=== PATIENT | female | born 1970 | race African-American/Black ===

== ENCOUNTER 2017-07-02 15:06 | Observation (INO) | payer OTHER ==
--- OUTSIDE RECORDS SUMMARY | 2017-07-02 15:08 | XMS REPORT | Clinical Summary ---
:1970 Author Organization [facility] Address [address] [place] [address] Care Team Providers Name Role Phone Kezia Bailon MD Primary Care Provider Allergies Active Allergy Reactions Severity Noted Date Comments Penicillin Swelling 04/17/2017 Current Medications Prescription Sig. Disp. Refills Start Date End Date Status gabapentin (NEURONTIN) Take 100 mg by Active 100 mg capsule mouth 3 (three) times a day. ferrous sulfate 324 mg Take 65 mg by mouth Active (65 mg iron) daily with tablet,delayed release breakfast. (DR/EC) EC tablet clopidogrel (PLAVIX) 75 Take 75 mg by mouth Active mg tablet daily. B,C/FERROUS Take 1 capsule by Active FUM/FA/D3/ZINC OX mouth daily. (PRORENAL ORAL) aspirin (ECOTRIN) 81 MG Take 81 mg by mouth Active enteric coated tablet daily. amLODIPine (NORVASC) 10 Take 10 mg by mouth Active mg tablet daily. hydrALAZINE (APRESOLINE) Take 50 mg by mouth Active 50 MG tablet 3 (three) times a day. potassium chloride Take 10 mEq by Active (KLOR-CON) 10 MEQ CR mouth daily. tablet pravastatin (PRAVACHOL) Take 20 mg by mouth Active 20 MG tablet nightly. lisinopril Take 40 mg by mouth Active (PRINIVIL,ZESTRIL) 40 mg daily. tablet sevelamer (RENVELA) 800 Take 800 mg by Active mg tablet mouth 3 (three) times a day with meals. 1 tab with snack. Active Problems Problem Noted Date Type 2 diabetes mellitus with renal complication 04/17/2017 Encounters Date Type Specialty Care Team Description 06/04/2017 Hospital Encounter Transplant Asked, No Pcp No Show 06/04/2017 Hospital Encounter Transplant Asked, No Pcp No Show 05/13/2017 Documentation Transplant Angely Escobedo TXP- MCR ABD- RENAL TXP EVAL APPVL 04/20/2017 Telephone Transplant Isabel Walker, NEW PATIENT PACKET MA 04/17/2017 Telephone Transplant Isidra RodriguezMICAH Referral - Kidney Txp (New MD Keegan coe) after 07/01/2016 Social History Tobacco Use Types Packs/Day Years Used Date Former Smoker Cigarettes 0.5 20 Quit: 04/06/2014 Smokeless Tobacco: Never Used Sex Assigned at Date Recorded Not on file Last Filed Vital Signs Vital Sign Reading Time Taken Blood Pressure - - Pulse - - Temperature - - Respiratory Rate - - Oxygen Saturation - - Inhaled Oxygen Concentration - - Weight 113 kg (250 lb) 04/17/2017 3:43 PM 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 [phone] [address] [facility] Self 1970 Home: [address] [phone] [address]
--- NOTE | 2017-07-02 16:26 | EKG ---
Test Date: 2017-07-02 Test Time: 15:47:07 Wire Taper: GERDA MEASUREMENT RESULTS: Intervals: Rate: 96 NE: 150 QRSD: 86 QT: 352 QTc: 444 [place]: P: 29 NE: 150 QRS: 21 T: 58 INTERPRETIVE STATEMENTS: Normal sinus rhythm Possible Anterior infarct, age undetermined Abnormal ECG No previous ECG available for comparison Electronically Signed On 07-02-17 16:26:23 CDT by Tacos Langley
[2017-07-02 17:05] LABS: Absolute Monocytes 0.9 K/uL (0.1-1.3); Absolute Neutrophil 7.7 K/uL (1.8-8.0); Eosinophils % 4.8 % (0-4.4); Lymphocytes % 24.3 % (15.3-44.8); MCH 31.8 pg (27.0-35.0); MCV 93.6 fL (80-100); MPV 7.7 fL (7.6-11.3); Monocytes % 7.7 % (3.3-12.3); RBC Red Blood Cell Count 2.67 M/uL (3.86-4.86)
[2017-07-02 17:41] LABS: Potassium 5.7 mEq/L (3.6-5.0)
--- NOTE | 2017-07-02 18:02 | ER ---
Nurse's Notes [facility] Name: Lexus Green Age: 47 yrs Sex: Female : 1970 Arrival Date: 07/02/2017 Time: 15:07 Bed 16 Private MD: Honorio Lowe V Diagnosis: Hyperkalemia;Dyspnea Presentation: 07/02 15:19 Presenting complaint: Patient states: Sent by Dr Lowe for high potassium. Patient does aj peritoneal dialysis daily. Transition of care: patient was not received from another setting of care. Onset of symptoms was July 02, 2017. Care prior to arrival: None. 15:19 Method Of Arrival: Ambulatory aj 15:19 Acuity: SHERI 3 aj Triage Assessment: 15:22 General: Appears in no apparent distress. comfortable, Behavior is calm, cooperative, aj appropriate for age. Pain: Complains of pain in right lower back, right gluteus lita, right gluteal fold and right leg. Neuro: Level of Consciousness is awake, alert, obeys commands, Oriented to person, place, time, situation. Respiratory: Airway is patent Respiratory effort is even, unlabored, Respiratory pattern is regular, symmetrical. Derm: Skin is intact, is healthy with good turgor, Skin is pink, warm \\T\\ dry. normal. 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 - Social history:: Smoking status: Patient/guardian denies using tobacco. Screenin:27 Abuse screen: Denies threats or abuse. Nutritional screening: No deficits noted. rb1 Tuberculosis screening: No symptoms or risk factors identified. Fall Risk None identified. Assessment: 15:27 General: Appears in no apparent distress. comfortable, obese, Behavior is calm, rb1 cooperative, Reports Dr. shine called and told her to pack a bag and come to the ER due to abnormal lab results. Pt. wasn't sure why they told her to come here, other than high potassium. Neuro: Level of Consciousness is awake, alert, obeys commands, Oriented to person, place, time, situation. Cardiovascular: Capillary refill < 3 seconds is brisk in bilateral fingers. Respiratory: Airway is patent Respiratory effort is even, unlabored, Respiratory pattern is regular, symmetrical. GI: No signs and/or symptoms were reported involving the gastrointestinal system. : No signs and/or symptoms were reported regarding the genitourinary system. Derm: Skin is dry, Skin is normal, Skin temperature is warm. 15:40 Reassessment: Pt. didn't want to get an IV until the physician came in to talk with her.rb1 15:45 Reassessment: I informed the pt. that the provider would like to draw more labs to rb1 recheck the levels and the pt. agreed to an IV. 16:23 Reassessment: Patient appears in no apparent distress at this time. Patient and/or rb1 family updated on plan of care and expected duration. Pain level reassessed. Patient is alert, oriented x 3, equal unlabored respirations, skin warm/dry/pink. 17:41 Reassessment: Dr. Putnam notified of critical lab values, potassium 5.7 and creatinine ss 12.84. 18:18 Reassessment: Patient appears in no apparent distress at this time. Patient and/or rb1 family updated on plan of care and expected duration. Pain level reassessed. Patient is alert, oriented x 3, equal unlabored respirations, skin warm/dry/pink. 18:30 Reassessment: KATY Manzano stated, "I'm going to ask KATY Prado to put a midline in rb1 because the pt. is a hard stick.". 19:36 Reassessment: Patient appears in no apparent distress at this time. No changes from aj previously documented assessment. Patient and/or family updated on plan of care and expected duration. Pain level reassessed. Patient is alert, oriented x 3, equal unlabored respirations, skin warm/dry/pink. Vital Signs: 15:22 BP 144 / 65; Pulse 100; Resp 17; Temp 97.2; Pulse Ox 97% on R/A; Weight 124.74 kg; aj Height 5 ft. 8 in. (172.72 cm); Pain 8/10; 16:14 BP 149 / 74; Pulse 94; Resp 19; Pulse Ox 98% on R/A; rb1 18:14 BP 168 / 78; Pulse 96; Resp 17; Pulse Ox 100% on R/A; rb1 20:08 BP 143 / 78; Pulse 95; Resp 17; Pulse Ox 99% on R/A; aj 15:22 Body Mass Index 41.81 (124.74 kg, 172.72 cm) aj ED Course: 15:07 Patient arrived in ED. as 15:07 Honorio Lowe MD is Private Physician. as 15:20 Triage completed. aj 15:22 Arm band placed on right wrist. Patient placed in an exam room. aj 15:27 Patient has correct armband on for positive identification. Bed in low position. Call rb1 light in reach. Side rails up X 1. Pulse ox on. NIBP on. 15:29 Ankit Mccabe MD is Attending Physician. gs 15:31 Renetta Stiles, RN is Primary Nurse. rb1 15:45 Missed attempt(s): 22 gauge in left antecubital area. rb1 16:00 Missed attempt(s): 20 gauge in right antecubital area. Bleeding controlled, band aid dh3 applied, catheter tip intact. Missed attempt(s): 22 gauge in right hand. Bleeding controlled, band aid applied, catheter tip intact. Missed attempt(s): 22 gauge in left antecubital area. Bleeding controlled, band aid applied, catheter tip intact. 16:07 EKG done, by property technician. reviewed by Ankit Mccabe MD. at1 16:07 Missed attempt(s): 24 gauge in left forearm. Bleeding controlled, band aid applied, ss catheter tip intact. 16:47 CBC with Diff Sent. sg 16:47 Basic Metabolic Panel Sent. sg 18:00 Honorio Lowe MD is Hospitalizing Provider. gs 18:55 Report given to KULDIP Roberson. rb1 19:00 Applied triple antibiotic ointment, 4x4 gauze, and Coban on the 2nd toe of right foot. rb1 19:08 Primary Nurse role handed off by Renetta Stiles, RN aj 19:08 Karol Devi RN is Primary Nurse. aj 19:50 Repeat lab(s) drawn. by co, sent to lab. Inserted 18 gauge 10 cm midline to right upper mw brachial vein on second attempt. Line with good blood return and flushes well. 20:45 Patient admitted, IV remains in place. intact. aj Administered Medications: 18:09 Drug: Kayexalate 30 grams Route: PO; rb1 20:44 Follow up: Response: No adverse reaction aj 18:09 Drug: Lovenox 40 mg Route: Sub-Q; Site: left lower abdomen; rb1 20:44 Follow up: Response: No adverse reaction aj 20:08 Drug: Lasix 80 mg Route: IVP; Site: right antecubital; aj 20:44 Follow up: Response: No adverse reaction Outcome: 18:01 Decision to Hospitalize by Provider. 20:45 Admitted to Med/surg accompanied by tech, via wheelchair, room 215, Report called to zen Nguyen RN 20:45 Condition: good 20:45 Instructed on the need for admit. 20:45 Patient left the ED. zen Signatures: Judy Flood RN KULDIP Olvin Leavitt RN RN sg Myers, Amanda, RN RN aj Martinez, Amelia as Smirch, Shelby, RN RN ss Karol bronson, armoured [employer] officer EKG Tat1 Renetta Stiles RN RN [facility] Jazmine Coombs 3 Ankit Mccabe MD MD Corrections: (The following items were deleted from the chart) 18:19 16:23 Reassessment: Patient appears in no apparent distress at this time. No changes rb1 from previously documented assessment. rb1
--- NOTE | 2017-07-02 18:02 | EDPHYS ---
Physician Documentation [facility] Name: Lexus Green Age: 47 yrs Sex: Female : 1970 Arrival Date: 07/02/2017 Time: 15:07 Bed 16 Private MD: Honorio Lowe V ED Physician Salas Mccabeory HPI: 07/02 17:51 This 47 yrs old Black Female presents to ER via Ambulatory with complaints of Abnormal gs Lab Results. 17:51 The patient has shortness of breath during heavy activity. Onset: The symptoms/episode gs began/occurred 2 day(s) ago. Duration: The symptoms are intermittent. The patient's shortness of breath is aggravated by exertion. Associated signs and symptoms: Pertinent negatives: chest pain, hemoptysis. Severity of symptoms: At their worst the symptoms were moderate in the emergency department the symptoms have improved moderately. The patient has experienced similar episodes in the past, a few times. The patient has been recently seen by a physician: the patient's primary care provider, Dr. Lowe. 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 - Social history:: Smoking status: Patient/guardian denies using tobacco. ROS: 17:51 Respiratory: Negative for pleurisy. gs 17:51 All other systems are negative. Exam: 17:51 Head/Face: Normocephalic, atraumatic. Eyes: Pupils equal round and reactive to light, gs extra-ocular motions intact. Lids and lashes normal. Conjunctiva and sclera are non-icteric and not injected. Cornea within normal limits. Periorbital areas with no swelling, redness, or edema. ENT: Nares patent. No nasal discharge, no septal abnormalities noted. Tympanic membranes are normal and external auditory canals are clear. Oropharynx with no redness, swelling, or masses, exudates, or evidence of obstruction, uvula midline. Mucous membranes moist. Neck: Trachea midline, no thyromegaly or masses palpated, and no cervical lymphadenopathy. Supple, full range of motion without nuchal rigidity, or vertebral point tenderness. No Meningismus. Chest/axilla: Normal chest wall appearance and motion. Nontender with no deformity. No lesions are appreciated. Cardiovascular: Regular rate and rhythm with a normal S1 and S2. No gallops, murmurs, or rubs. Normal PMI, no JVD. No pulse deficits. Respiratory: Lungs have equal breath sounds bilaterally, clear to auscultation and percussion. No rales, rhonchi or wheezes noted. No increased work of breathing, no retractions or nasal flaring. Abdomen/GI: Soft, non-tender, with normal bowel sounds. No distension or tympany. No guarding or rebound. No evidence of tenderness throughout. Back: No spinal tenderness. No costovertebral tenderness. Full range of motion. Skin: Warm, dry with normal turgor. Normal color with no rashes, no lesions, and no evidence of cellulitis. Neuro: Awake and alert, GCS 15, oriented to person, place, time, and situation. Cranial nerves II-XII grossly intact. Motor strength 5/5 in all extremities. Sensory grossly intact. Cerebellar exam normal. Normal gait. 17:51 Constitutional: The patient appears alert, awake. 17:51 ECG was reviewed by the Attending Physician. 17:51 Musculoskeletal/extremity: Extremities: noted in the left second toe and Left second toenail: Vital Signs: 15:22 BP 144 / 65; Pulse 100; Resp 17; Temp 97.2; Pulse Ox 97% on R/A; Weight 124.74 kg; aj Height 5 ft. 8 in. (172.72 cm); Pain 8/10; 16:14 BP 149 / 74; Pulse 94; Resp 19; Pulse Ox 98% on R/A; rb1 18:14 BP 168 / 78; Pulse 96; Resp 17; Pulse Ox 100% on R/A; rb1 20:08 BP 143 / 78; Pulse 95; Resp 17; Pulse Ox 99% on R/A; aj 15:22 Body Mass Index 41.81 (124.74 kg, 172.72 cm) aj MDM: 16:22 Patient medically screened. 17:51 Differential diagnosis: CHF exacerbation, Chronic Obstructive Pulmonary Disease gs Myocardial Infarction pneumonia, possible pe dimer was positive but is a renal pt. no hard clinical findings of pe , no pleurisy, tachycardia, tachypnea, no hypoxemia. spoke with shani will get vq, cover with lovenox monitor K change pd formulation. Data reviewed: vital signs, nurses notes, and as a result, I will admit patient. 07/02 15:37 Order name: CBC with Diff; Complete Time: 17:29 gs 07/02 15:37 Order name: Basic Metabolic Panel; Complete Time: 17:48 07/02 18:09 Order name: Basic Metabolic Panel EDPR 07/02 18:09 Order name: Troponin I EDPR 07/02 18:09 Order name: Troponin I EDPR 07/02 18:09 Order name: Troponin I EDPR 07/02 15:37 Order name: EKG; Complete Time: 15:38 07/02 18:09 Order name: CONS Physician Consult EDPR 07/02 18:09 Order name: EKG Electrocardiogram EDPR 07/02 18:09 Order name: EKG Electrocardiogram EDPR EC:51 Rate is 96 beats/min. Rhythm is regular. OR interval is normal. QRS interval is normal. T waves are Flattened. Clinical impression: Abnormal EKG without significant change. Interpreted by me. Administered Medications: 18:09 Drug: Kayexalate 30 grams Route: PO; rb1 20:44 Follow up: Response: No adverse reaction aj 18:09 Drug: Lovenox 40 mg Route: Sub-Q; Site: left lower abdomen; rb1 20:44 Follow up: Response: No adverse reaction aj 20:08 Drug: Lasix 80 mg Route: IVP; Site: right antecubital; aj 20:44 Follow up: Response: No adverse reaction aj Disposition: 07/02/17 18:01 Hospitalization ordered by Honorio Lowe for Observation. Preliminary diagnosis are Hyperkalemia, Dyspnea. - Bed requested for Telemetry/MedSurg (observation). - Status is Observation. aj - Condition is Stable. - Problem is an acute exacerbation. - Symptoms have improved. UTI on Admission? No Signatures: Dispatcher [employer] [facility] Dorothea Somers RN RN dw Myers, Amanda, RN RN aj Barber, Rebecca, RN RN rb1 Ankit Mccabe MD MD
[2017-07-02] MEDS ORDERED: ENOXAPARIN 40 MG/0.4 ML SQ ONE (18:27)
[2017-07-02] MEDS ORDERED: SOD POLYSTYREN SUL 15 GM/60 ML UCUP ONE (18:27)
[2017-07-02 20:20] LABS: Potassium 5.9 mEq/L (3.6-5.0)
[2017-07-02] MEDS ORDERED: FUROSEMIDE 100 MG/10 ML VIAL IV ONE (20:23)
[2017-07-02] MEDS ORDERED: ALBUTEROL 2.5 MG/3 ML NEB SOL NEB ONE (20:37)
[2017-07-02] MEDS ORDERED: D50W 25 GM/50 ML SYRINGE IV PRN (20:38)
[2017-07-02] MEDS ORDERED: GLUCAGON 1 MG/VIAL IM PRN (20:38)
[2017-07-02] MEDS ORDERED: D50W 25 GM/50 ML SYRINGE IV ONE (20:38)
[2017-07-02] MEDS ORDERED: INSULIN -REGULAR HUMAN 50 UNIT/0.5 ML ML IV ONE (20:40)
[2017-07-02] MEDS: BUMETANIDE 1 MG/4 ML VIAL IV SCH (21:00)
[2017-07-02] MEDS ORDERED: Levofloxacin 250mg IV 250 MG/50 ML BAG IV SCH (21:00)
[2017-07-02 21:24] VITALS: BMI 41.9
[2017-07-02] MEDS ORDERED: VANCOMYCIN/NS 1 gm 2 GM/500 ML BAG IVPB ONE (22:00)
[2017-07-02] MEDS: DIPHENHYDRAMINE 25 MG TAB/CAP PO PRN (22:52)
[2017-07-02] MEDS: INSULIN -REGULAR HUMAN 50 UNIT/0.5 ML ML SQ SCH (22:55)
[2017-07-03] MEDS ORDERED: NA CHLORIDE 0.9% 250 ML ONE ×3 (00:42→21:01)
[2017-07-03 01:59] LABS: Urine Appearance CLOUDY; Urine Bilirubin NEGATIVE (NEG); Urine Blood NEGATIVE (NEG); Urine Color YELLOW; Urine Glucose NEGATIVE (NEG); Urine Protein 1+ (NEG); Urine Urobilinogen 0.2 mg/dL (0.2-1.0); Urine pH 5.5 (5.0-7.0)
[2017-07-03 02:05] LABS: Urine Microscopic Reflex ORDER UMIC
[2017-07-03] MEDS: ACETAMINOPHEN 500 MG TAB PO PRN ×2 (04:30→12:39)
[2017-07-03 04:45] LABS: Urine Bacteria LOADED /HPF (<20); Urine Culture Reflex Order REFLEXED; Urine RBC <5 /HPF (NONE SEEN)
--- NOTE | 2017-07-03 05:24 | CON ---
Date of Consultation: 07/02/2017 Additional Consulting Physician: Honorio Lowe M.D. Reason For Consultation: Hyperkalemia, hypertension, fluid overload, and end-stage renal disease. History Of Present Illness: This is a pleasant unfortunate 47-year-old female with significant past medical history of diabetes complicated with neuropathy, nephropathy, hypertension, hyperlipidemia, e nd-stage renal disease, on peritoneal dialysis, was started on peritoneal dialysis for the last 1 yea r, started in [place]. The patient move back to her home town. According to the patient, her co jovan was complicated with MT amputation on the left. The patient followup with [facility] for Amy ors under the care of Franky Rajan, Nephrology. According to the patient, the patient visited with them 2 weeks ago with the condition of over volume. Her lab showing some hyperkalemia and anemia. A t that time, she has some infected toe, given ciprofloxacin. The patient came to her primary care Dr Natalia Lowe, found to have shortness of breath and edema. For that reason, she sent to the emergency [facility]. In the emergency room, primary workup show hyperkalemia. The patient denied any shortness of tamela ath. No chest pain. No palpitation. We have been consulted to maintain her PDA because of the hyperkalemia. The patient denied any fever or any chills. No abdominal pain. Past Medical History: 1.Hypertension. 2.Diabetes complicated with neuropathy and nephropathy. 3.Peripheral vascular disease, status post TMA on the left side. Family History: Positive for diabetes and hypertension. Social History: Deny smoking. Deny drinking. Deny drug use. Allergies: TO PENICILLIN. Past Surgical History: 1.Include PermCath placement and removal. 2.PD catheter placement. Review of Systems: Head and Neck: No red eye. No ear pain. GI: No nausea, no vomiting. : No polyuria. No dysuria. No hematuria. 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 Respiratory: No shortness of breath. Cardiovascular: Has leg swelling. Endocrine: No polydipsia. Skin: No rash. Neuro: Has neuropathy. Musculoskeletal: Has toe pain. Physical Examination: Vital Signs: When I saw the patient, blood pressure of 168/78, pulse of 96, afebrile. Chest: Clear to auscultation. Heart: S1, S2. Regular rhythm. Abdomen: Soft, nontender. Extremities: +1 edema. Left TMA, right second toe gangrene. Laboratory Data: WBC 12.4, H and H 8.5/25, platelets 304. Sodium 138, potassium 5.7, bicarb 22, chl oride 100, BUN 103, creatinine 12.8, calcium 9.1. TSH 1.6. Home Medications: Do not remember her home medication. Assessment And Plan: 1.End-stage renal disease, over volume. I educated the patient to bring her machine and start ultra filtration using 4.25 and 2.5 alternating for establishing better volume control. I am going to plac e the patient on Bumex and metolazone and we will follow up. 2.Hyperkalemia. We will diurese the patient aggressively. We will start the patient on PD and we w ill follow up. 3.Anemia of chronic kidney disease with the presence of hyperkalemia. I am going to go ahead and se nd for fecal occult. We will send for anemia workup. 4.Diabetes as by primary. 5.Secondary hyperparathyroidism. We will start the patient on calcitriol. 6.Toe infection. I am going to go ahead and get foot x-ray and we will dose the patient of 1 dose o f vancomycin and start on Cipro. We will send for culture. We will consult for surgery. Case discu ssed with the patient, verbalized understanding, discussed with Dr. Lowe. MICAH/JENNIFER Voice ID: [id number] Report ID: [id number]
[2017-07-03 05:47] LABS: Absolute Lymphocytes (CBC) 2.1 K/uL (0.7-4.9); Absolute Monocytes 1.1 K/uL (0.1-1.3); Absolute Neutrophil 7.4 K/uL (1.8-8.0); Basophils % 0.9 % (0-1.3); Eosinophils % 2.8 % (0-4.4); Hematocrit 21.9 % (36.0-45.0); Lymphocytes % 19.5 % (15.3-44.8); MCV 95.3 fL (80-100); MPV 7.8 fL (7.6-11.3); Monocytes % 9.9 % (3.3-12.3)
[2017-07-03 06:32] LABS: Albumin 2.8 g/dL (3.2-5.5); Bicarbonate 21 mEq/L (21-31); Ferritin 336.3 ng/ml (11.0-306.8); Glucose Level 278 mg/dL (65-120); Phosphorus 8.1 mg/dL (2.5-4.3); Potassium 5.5 mEq/L (3.6-5.0); Sodium Level 134 mEq/L (135-145); Transferrin 126 mg/dL (192-382)
[2017-07-03 06:37] LABS: BUN Blood Urea Nitrogen 103 mg/dL (6-20); Glomerular Filtration Rate 4 mL/min (=/>90)
[2017-07-03 06:38] LABS: Folic Acid, (Folate) > 22.3 ng/ml (>5.21)
--- NOTE | 2017-07-03 07:32 | RAD REPORT ---
EXAM DESCRIPTION: RAD - Foot Right 3 View - 07/03/2017 7:03 am CLINICAL HISTORY: Soft tissue wound, possible osteomyelitis COMPARISON: None. FINDINGS: Soft tissue wound involves the distal second toe. Early erosive changes involve the second distal phalanx. Proximal and middle phalanges pain intact. Mild degenerative change seen in the IP joints of the foot. MTP joints are spared. There are degenera tive changes along the dorsum of the foot at the navicular articulation with the cuneiform bones. Thi s is favored to be degenerative change rather than midfoot osteomyelitis. Midfoot changes can be angelo tored on serial examination. If the patient is diabetic, this could be the initial stages of Charcot joint development. There are early degenerative changes at the cuneiform metatarsal articulation. IMPRESSION: Early bone destructive osteomyelitis changes involving the distal phalanx of the second toe. Proximal and middle phalanges of the second toe are intact although osteomyelitis can be present prio r to bone destruction. Degenerative changes at the dorsum of the midfoot navicular-cuneiform articulation. If the patient is diabetic, serial imaging could be performed to monitor midfoot for progressive degenerative change o r Charcot joint formation.
[2017-07-03] MEDS ORDERED: ALBUTEROL 2.5 MG/3 ML NEB SOL NEB ONE (07:40)
[2017-07-03] MEDS ORDERED: D50W 25 GM/50 ML SYRINGE IV ONE (07:41)
[2017-07-03] MEDS ORDERED: INSULIN -REGULAR HUMAN 50 UNIT/0.5 ML ML IV ONE ×2 (07:42→16:40)
[2017-07-03] MEDS ORDERED: FUROSEMIDE 40 MG/4 ML VIAL IV PRN (07:45)
[2017-07-03] MEDS: ASPIRIN EC 81 MG TAB PO SCH (08:12)
[2017-07-03] MEDS: METOLAZONE 5 MG TABLET PO SCH (08:12)
[2017-07-03] MEDS: INSULIN -REGULAR HUMAN 50 UNIT/0.5 ML ML SQ SCH ×4 (08:13→21:03)
[2017-07-03] MEDS: BUMETANIDE 1 MG/4 ML VIAL IV SCH ×2 (08:16→20:46)
[2017-07-03] MEDS: DIPHENHYDRAMINE 25 MG TAB/CAP PO PRN (12:39)
--- NOTE | 2017-07-03 13:01 | P.HP ---
Certification for Inpatient Patient admitted to: Inpatient With expected LOS: >2 Midnights Practitioner: I am a practitioner with admitting privileges, knowledge of patient current condition, hospital course, and medical plan of care. Services: Services provided to patient in accordance with Admission requirements found in Title 42 Section 412.3 of the Code of Federal Regulations Patient History Date of Service: 07/03/17 Reason for admission: DYSPNEA, HIGH K, EDEMA, ANEMIA History of Present Illness: I SAW MS. NAYLOR FIRST TIME YESTERDAY AT OFFICE. SHE CAME WITH MILD TO MOD DYSPNEA, EDEMA, FATIGUE. SHE IS A RENAL PATIENT ON PD, SHE MOVED FROM [place] REFERRED BY [employer] [facility] TO MY OFFICE. I FOUND HER TO BE IN MODERATE DISTERESS WITH PND, ORTHOPNEA SO I DECIDED TO DO LAB WORK. D DIMER WAS HIGH AT 1400, K WAS HIGH AT 5.7. I ASKED HER TO COME TO ER. SHE IS NOW ADMITTED FOR FURTHER TINAJERO. I ALSO TALKED TO DR. SILVERMAN AND ER DOCTOR BEFORE CALLING HER BACK. SHE DENIES ANY ACUTE BLEEDING. SHE HAS HAD 3 STENTS FOR CAD IN THE PAST. Allergies Penicillins Allergy (Verified 07/02/17 19:22) Hives Home Medications: Amlodipine [Norvasc*] 1 tab PO BEDTIME 07/03/17 Aspirin [Aspir-Low] 1 tab PO DAILY 07/03/17 B,C/Ferrous Fum/FA/D3/Zinc Ox [Prorenal Multivitamin Tablet] 1 tab PO DAILY Calcitrol [Rocaltrol*] 2 tab PO DAILY 07/03/17 Cephalexin [Keflex*] 1 tab PO BID 07/03/17 Cholecalciferol (Vitamin D3) [Vitamin D3] 1 tab PO DAILY 07/03/17 Clopidogrel Bisulfate [Plavix*] 1 tab PO DAILY 07/03/17 Gabapentin [Neurontin*] 3 tab PO DAILY 07/03/17 Hydralazine HCl [Apresoline] 1 tab PO TID 07/03/17 Insulin Aspart [Novolog] See Protocol SQ BEDTIME 07/03/17 Insulin Detemir [Levemir*] 10 units SQ BEDTIME 07/03/17 Insulin Detemir [Levemir*] 25 units SQ AC 07/03/17 Lisinopril 1 tab PO BEDTIME 07/03/17 Potassium Chloride 1 tab PO DAILY 07/03/17 Pravastatin Sodium [Pravachol] 1 tab PO BEDTIME 07/03/17 Sevelamer Carbonate [Renvela*] 1 tab PO TID 07/03/17 - Past Medical/Surgical History Has patient received pneumonia vaccine in the past: No Diabetic: Yes -: Diabetes Type 2 -: HTN -: Hyperlipidemia -: -: Liposuction -: butt-lift -: breast reduction -: 3 stents inserted from Stroke -: CHF -: Left foot partial amputation - Family History Mother -: Heart disease, Hypertension Father -: Stroke Sister -: Hypertension - Social History Smoking Status: Former smoker Alcohol use: Yes CD- Drugs: No Caffeine use: Yes Place of Residence: Home Review of Systems 10-point ROS is otherwise unremarkable General: Weakness, Malaise Eyes: As per HPI Cardiovascular: Orthopnea, Paroxysmal Noc. Dyspnea, Edema Physical Examination - Vital Signs Temperature: 97.7 F Blood Pressure: 117/55 Pulse: 100 Respirations: 16 Pulse Ox (%): 96 - Physical Exam General: Alert, Moderate distress, Obese HEENT: Atraumatic, PERRLA, Mucous membr. moist/pink, EOMI, Sclerae nonicteric Neck: Supple, 2+ carotid pulse no bruit, No LAD, Without JVD or thyroid abnormality Respiratory: Clear to auscultation bilaterally, Normal air movement Cardiovascular: Regular rate/rhythm, Normal S1 S2 Gastrointestinal: Normal bowel sounds, No tenderness Musculoskeletal: No tenderness Integumentary: No rashes, Other (L FOREFOOT AMPUTATION FOR PVD, SPIDER BITE. RIGHT SECOND TO BLUISH DISCOLORATION AND ULCER WITH CALLUS ON THE PLANTER SURFACE. NO PUS.) Neurological: Normal gait, Normal speech, Normal strength at 5/5 x4 extr, Normal tone, Normal affect Lymphatics: No axilla or inguinal lymphadenopathy - Studies Laboratory Data (last 24 hrs) 07/02/17 16:36: Sodium 135, Potassium 5.7 H*, BUN 103 H, Creatinine 12.84 H*, Glucose 192 H 07/02/17 16:36: WBC 12.4 H, Hgb 8.5 L, Hct 25.0 L, Plt Count 304 Assessment and Plan - Problems (Diagnosis) (1) Dyspnea Current Visit: Yes Status: Acute Plan: VQ SCAN CT AVOIDED RENAL PATIENT, BY ER DOCTOR MOST LIKELY PD ADJUSTMENT WILL TAKE CARE OF THIS. (2) CKD (chronic kidney disease) stage 5, GFR less than 15 ml/min Current Visit: Yes Status: Chronic Plan: DR. SILVERMAN ON CASE (3) Diabetes Current Visit: Yes Status: Chronic Plan: RESUME LEVEMIR WILL ADJUST DOSE PER NUMBERS Qualifiers: Diabetes mellitus type: type 2 Diabetes mellitus usp insulin use: with rodent exterminator use (4) PVD (peripheral vascular disease) Current Visit: Yes Status: Chronic Plan: ART DOPPLER BILAT. (5) Edema Current Visit: Yes Status: Chronic Plan: VENOUS DOPPLER CHECK FOR CLOTS. (6) Diabetic ulcer of toe Current Visit: Yes Status: Acute Plan: SANTYL TOPICALLY R SECOND TOE LATER TO [facility] Qualifiers: Diabetes mellitus type: type 2 Laterality: right Non-pressure ulcer stage : with fat layer exposed Qualified Code(s): E11.621 - Type 2 diabetes mellitus with foot ulcer; L97.512 - Non-pressure chronic ulcer of other part of right foot with fat layer exposed; L97.512 - Non-pressure chronic ulcer of other part of right foot with fat layer exposed; L97.512 - Non-pressure chronic ulcer of other part of right foot with fat layer exposed; L97.512 - Non- pressure chronic ulcer of other part of right foot with fat layer exposed (7) Elevated d-dimer Current Visit: Yes Status: Acute - Advance Directives Does patient have a Living Will: No Does patient have a Durable POA for Healthcare: No
[2017-07-03 13:30] LABS: RBC Red Blood Cell Count 2.45 M/uL (3.86-4.86)
[2017-07-03] MEDS ORDERED: TRAMADOL HCL 50 MG TAB PO PRN (13:49)
[2017-07-03] MEDS: HYDRALAZINE HCL 25 MG TABLET PO SCH ×2 (14:28→20:46)
[2017-07-03 14:32] LABS: Ferritin 324.4 ng/ml (11.0-306.8)
--- NOTE | 2017-07-03 15:07 | RAD REPORT ---
EXAM DESCRIPTION: VAS - Extrem Venous W Compress Hilton - 07/03/2017 2:27 pm CLINICAL HISTORY: Bilateral leg edema and swelling. COMPARISON: None. TECHNIQUE: Real-time sonographic interrogation of the left and right lower extremity deep venous sys tems was performed. FINDINGS: Several of the venous structures are noted to be noncompressible, likely related to the am ount of subcutaneous edema. Specifically, the proximal right greater saphenous, distal right femoral vein and mid and distal left femoral vein are noted to be noncompressible. Acute DVT, however, is not sonographically visualized. IMPRESSION: No sonographic evidence of left or right lower extremity deep venous thrombosis. Noncomp ressibility of several of the venous structures is likely related to soft tissue edema.
--- NOTE | 2017-07-03 15:44 | RAD REPORT ---
EXAM DESCRIPTION: VAS - Lower Extremity Arterial Bilat - 07/03/2017 3:36 pm CLINICAL HISTORY: Peripheral vascular disease. COMPARISON: None. TECHNIQUE: Bilateral lower extremity arterial Doppler examination was performed with carmela rome FINDINGS: The right lower extremity arterial system is biphasic throughout. The left lower extremity arterial s ystem is biphasic and monophasic distally. The pattern of peripheral vascular disease is largely diffuse, and greatest in the infrapopliteal ves sels. IMPRESSION: Mild peripheral vascular disease is suspected in the infrapopliteal vasculature. No occlusion is seen.
[2017-07-03] MEDS ORDERED: SEVELAMER CARBONATE 800 MG TABLET PO SCH (17:00)
[2017-07-03] MEDS ORDERED: EPOETIN ALFA 10,000 UNIT/ML VIAL IV ONE (17:15)
[2017-07-03] MEDS: SEVELAMER CARBONATE 800 MG TABLET PO SCH (17:51)
[2017-07-03] MEDS ORDERED: SOD FERRIC GLUC COMPLX/SUCROSE 250 MG in NA CHLORIDE 0.9% 250 ML IV ONE (18:00)
[2017-07-03] MEDS ORDERED: HYDROCODONE/APAP 5/325 MG TAB PO PRN (18:02)
[2017-07-03] MEDS: MORPHINE 2 MG/ML SYR IV PRN (20:47)
[2017-07-03] MEDS ORDERED: AMLODIPINE 10 MG TAB PO SCH (21:00)
[2017-07-03] MEDS ORDERED: PRAVASTATIN SODIUM PO SCH (21:00)
[2017-07-03] MEDS ORDERED: ATORVASTATIN 10 MG TAB PO SCH (21:00)
[2017-07-03] MEDS ORDERED: Levofloxacin 250mg IV 250 MG/50 ML BAG IV SCH (21:00)
[2017-07-03] MEDS ORDERED: INSULIN DETEMIR 100 UNIT/1 ML INSULIN SQ SCH (21:00)
--- NOTE | 2017-07-03 22:21 | PN ---
Date of Progress Note: 07/03/2017 Subjective: The patient doing better. Still complaining of pain in her leg. No nausea. No vomitin g. The patient resumed her PD. Objective: Vital Signs: When I saw the patient, blood pressure 117/55, pulse of 100, afebrile. Chest: Clear to auscultation. Heart: S1, S2. Regular. Abdomen: Soft, nontender. Extremities: +1 edema. Laboratory Data: WBC 11, H and H 7.1/21.9, platelet 274. Blood sugar being elevated above 300. Sod ium 135, potassium 5.5, bicarb 21, BUN 103, creatinine of 12, calcium 8.5, phosphorus 8.1. TSAT of 1 5, ferritin of 324, PTH 368. Medications: Current medications the patient on is include, 1.Aspirin. 2.Levaquin. 3.Vancomycin, received. 4.Plavix. 5.Amlodipine 10. 6.Atorvastatin. 7.Hydralazine 50 t.i.d. 8.Gabapentin. 9.Renvela 1 tablet with each meal. 10.Insulin. 11.Tramadol. 12.Cholecalciferol. 13.Calcitriol. Assessment And Plan: 1.End-stage renal disease, still over volume. We are going to do PD today and we will do it tonight also. Then, we are going to do it q.h.s. and we will monitor. The patient is going to be on 4.25 a nd 2.5. We are going to continue aggressive diuresis. Blood pressure started to be better controlle d. I am going to go ahead and discontinue her amlodipine to avoid if it contributes for the peripher al edema and we will monitor. I am going to continue aggressive diuresis. 2.Anemia of chronic kidney disease and iron-deficiency anemia. Start the patient on IV iron. We wi ll give the patient Epogen. The patient is going to be receiving transfusion today. We will diurese her after the transfusion. 3.Anasarca secondary to renal failure. DVT has been ruled out. We will follow up. I am going to g o ahead and send for TSH. 4.Hyperkalemia secondary to be under dialyzed. The patient is going to be dialyzed today during the day and at night. We will adjust the regimen of her dialysis. 5.Secondary hyperparathyroidism. I am going to increase her Renvela. 6.Iron-deficiency anemia as above. 7.Shortness of breath secondary to over volume. We will ultrafiltrate and continue diuresis. 8.Osteomyelitis of the left mid toe. We will consult Surgery and we will follow up. Vascular study came okay. Also, we will consult ID. The patient received vancomycin already. Continue Cipro. Fo llow up culture. 9.Diabetes. I increased her insulin sliding scale to aggressive to achieve better control on her bl ood sugar, so hopefully going to achieve better ultrafiltration. Case discussed with the patient and with the primary nurse. The patient verbalized understanding. JAYNE Voice ID: [id number] Report ID: [id number]
[2017-07-03 23:12] LABS: Hematocrit 25.8 % (36.0-45.0)
[2017-07-04 05:43] LABS: Absolute Lymphocytes (CBC) 2.7 K/uL (0.7-4.9); Absolute Monocytes 1.1 K/uL (0.1-1.3); Absolute Neutrophil 6.7 K/uL (1.8-8.0); Eosinophils % 4.3 % (0-4.4); Hematocrit 27.8 % (36.0-45.0); Lymphocytes % 24.7 % (15.3-44.8); MCH 30.6 pg (27.0-35.0); MCV 94.5 fL (80-100); MPV 7.8 fL (7.6-11.3); Monocytes % 9.8 % (3.3-12.3); RBC Red Blood Cell Count 2.94 M/uL (3.86-4.86)
[2017-07-04 05:44] LABS: Protime INR 1.1
[2017-07-04] MEDS: MORPHINE 2 MG/ML SYR IV PRN (06:08)
[2017-07-04 06:34] LABS: Potassium 5.4 mEq/L (3.6-5.0); Thyroid Stimulating Hormone 2.61 uIU/mL (0.34-5.60)
[2017-07-04] MEDS ORDERED: INSULIN DETEMIR 100 UNIT/1 ML INSULIN SQ SCH (08:00)
[2017-07-04] MEDS ORDERED: VITAMIN D 1000 UNIT TAB PO SCH (09:00)
[2017-07-04] MEDS ORDERED: CLOPIDOGREL 75 MG TABLET PO SCH (09:00)
[2017-07-04] MEDS ORDERED: GABAPENTIN 300 MG CAP PO SCH (09:00)
[2017-07-04] MEDS ORDERED: COLLAGENASE 30 GM OINTMENT TOP SCH (09:00)
[2017-07-04] MEDS ORDERED: CALCITROL 0.25 MCG CAP PO SCH (09:00)
[2017-07-04] MEDS: INSULIN -REGULAR HUMAN 50 UNIT/0.5 ML ML SQ SCH ×3 (09:08→16:23)
[2017-07-04] MEDS: SEVELAMER CARBONATE 800 MG TABLET PO SCH ×3 (09:10→17:00)
[2017-07-04] MEDS: METOLAZONE 5 MG TABLET PO SCH (09:11)
[2017-07-04] MEDS: HYDRALAZINE HCL 25 MG TABLET PO SCH ×2 (09:12→14:43)
[2017-07-04] MEDS: ASPIRIN EC 81 MG TAB PO SCH (09:12)
[2017-07-04] MEDS: BUMETANIDE 1 MG/4 ML VIAL IV SCH (09:13)
--- NOTE | 2017-07-04 11:02 | RAD REPORT ---
EXAM DESCRIPTION: NM - Vent Perfusion VQ Scan - 07/04/2017 8:30 am CLINICAL HISTORY: Chest pain COMPARISON: None. TECHNIQUE: The patient was administered 14.4 millicuries Xenon 133 gas with posterior projection ins piration, equilibrium, and washout views obtained. The patient was then administered 7.1 millicuries Tc-99m SC labeled RBCs followed by standard 8 view protocol. FINDINGS: Homogeneous distribution of the Xenon with no ventilation defects identified. No significa nt air-trapping seen. Perfusion images show no defects suspicious for pulmonary emboli. IMPRESSION: Very low probability of pulmonary thromboembolism.
--- NOTE | 2017-07-04 12:08 | P.DS ---
Admission Date: 07/03/17 Discharge Date: 07/04/17 Disposition: DC HOME/HOME HEALTH CARE Discharge Condition: FAIR Reason for Admission: DYSPNEA, HIGH K, EDEMA, ANEMIA - Problems (1) Dyspnea Current Visit: Yes Status: Acute (2) CKD (chronic kidney disease) stage 5, GFR less than 15 ml/min Current Visit: Yes Status: Chronic (3) Diabetes Current Visit: Yes Status: Chronic Qualifiers: Diabetes mellitus type: type 2 Diabetes mellitus watermaster insulin use: with watermaster use (4) PVD (peripheral vascular disease) Current Visit: Yes Status: Chronic (5) Edema Current Visit: Yes Status: Chronic (6) Diabetic ulcer of toe Current Visit: Yes Status: Acute Qualifiers: Diabetes mellitus type: type 2 Laterality: right Non-pressure ulcer stage : with fat layer exposed Qualified Code(s): E11.621 - Type 2 diabetes mellitus with foot ulcer; L97.512 - Non-pressure chronic ulcer of other part of right foot with fat layer exposed; L97.512 - Non-pressure chronic ulcer of other part of right foot with fat layer exposed; L97.512 - Non-pressure chronic ulcer of other part of right foot with fat layer exposed; L97.512 - Non- pressure chronic ulcer of other part of right foot with fat layer exposed (7) Elevated d-dimer Current Visit: Yes Status: Acute Brief History of Present Illness: I SAW MS. NAYLOR FIRST TIME YESTERDAY AT OFFICE. SHE CAME WITH MILD TO MOD DYSPNEA, EDEMA, FATIGUE. SHE IS A RENAL PATIENT ON PD, SHE MOVED FROM [place] REFERRED BY [employer] TO MY OFFICE. I FOUND HER TO BE IN MODERATE DISTERESS WITH PND, ORTHOPNEA SO I DECIDED TO DO LAB WORK. D DIMER WAS HIGH AT 1400, K WAS HIGH AT 5.7. I ASKED HER TO COME TO ER. SHE IS NOW ADMITTED FOR FURTHER TINAJERO. I ALSO TALKED TO DR. SILVERMAN AND ER DOCTOR BEFORE CALLING HER BACK. SHE DENIES ANY ACUTE BLEEDING. SHE HAS HAD 3 STENTS FOR CAD IN THE PAST. MS NAYLOR IS A LOT BETTER. HER BREATHING HAS IMPROVED, SHE IS VERY COMFORTABLE. SHE HAS NO DVT OR PE. SHE HAS HAD FLUID OVERLOAD FROM SUBOPITMAL PD. SHE WILL NOW BE WITH DR. SILVERMAN FOR RENAL ISSUES. SHE HAS OSTEOMYELITIS ON R SECOND TOE. SHE IS REFERRED TO [facility] UNDER DR KHOURY SHE MAY END UP NEEDING AMPUTATION. SHE DOES NOT WANT IT. I GAVE HER CIPRO AND DOXYCYCLIN FOR INFECTION THAT IS MILD OM. I STOPPED LISINOPRIL , KCL HER K IS HIGH. SHE IS STABLE FOR DISCHARGE. Vital Signs/Physical Exam: Temp Pulse Resp BP Pulse Ox 97.4 F 101 H 18 138/84 99 07/04/17 08:00 07/04/17 09:13 07/04/17 08:00 07/04/17 09:13 07/04/17 08:00 Laboratory Data at Discharge: WBC 11.1 K/uL (4.3-10.9) H 07/04/17 05:10 Hgb 9.0 g/dL (12.0-15.0) L 07/04/17 05:10 Hct 27.8 % (36.0-45.0) L 07/04/17 05:10 Plt Count 296 K/uL (152-406) 07/04/17 05:10 PT 13.0 SECONDS (9.5-12.5) H 07/04/17 05:10 INR 1.10 07/04/17 05:10 Sodium 140 mEq/L (135-145) 07/04/17 05:10 Potassium 5.4 mEq/L (3.6-5.0) H 07/04/17 05:10 BUN 90 mg/dL (6-20) H 07/04/17 05:10 Creatinine 11.09 mg/dL (0.44-1.00) H* D 07/04/17 05:10 Glucose 230 mg/dL (65-120) H 07/04/17 05:10 Phosphorus 8.1 mg/dL (2.5-4.3) H 07/03/17 04:30 Troponin I < 0.03 ng/mL (<0.03) 07/03/17 01:16 Home Medications: Amlodipine [Norvasc*] 1 tab PO BEDTIME 07/03/17 Aspirin [Aspir-Low] 1 tab PO DAILY 07/03/17 B,C/Ferrous Fum/FA/D3/Zinc Ox [Prorenal Multivitamin Tablet] 1 tab PO DAILY Calcitrol [Rocaltrol*] 2 tab PO DAILY 07/03/17 Cholecalciferol (Vitamin D3) [Vitamin D3] 1 tab PO DAILY 07/03/17 Clopidogrel Bisulfate [Plavix*] 1 tab PO DAILY 07/03/17 Gabapentin [Neurontin*] 3 tab PO DAILY 07/03/17 Insulin Aspart [Novolog] See Protocol SQ BEDTIME 07/03/17 Insulin Detemir [Levemir*] 10 units SQ BEDTIME 07/03/17 Insulin Detemir [Levemir*] 25 units SQ BREAKFAST 07/03/17 Potassium Chloride 1 tab PO DAILY 07/03/17 Pravastatin Sodium [Pravachol] 1 tab PO BEDTIME 07/03/17 Sevelamer Carbonate [Renvela*] 1 tab PO TID 07/03/17 Ciprofloxacin HCl [Cipro 250 MG Tablet*] 250 mg PO BID #60 tab 07/04/17 Doxycycline Hyclate 100 mg PO BID #60 tablet 07/04/17 Hydralazine [Apresoline*] 50 mg PO TID tab 07/04/17 traMADol HCL [Ultram*] 50 mg PO Q8H PRN #50 tab 07/04/17 New Medications: Ciprofloxacin HCl [Cipro 250 MG Tablet*] 250 mg PO BID #60 tab Doxycycline Hyclate 100 mg PO BID #60 tablet traMADol HCL [Ultram*] 50 mg PO Q8H PRN #50 tab PRN Reason: Pain Patient Discharge Instructions: COME TO SEE ME THURSDAY OR THURSDAY PM- CALL FOR APT. SEE DR SILVERMAN FOR KIDNEYS AND DR. KHOURY AT [facility]- CALL [phone] TO MAKE APT.
--- NOTE | 2017-07-04 15:58 | CON ---
Date of Consultation: 07/03/2017 Brief Hpi: The patient is a 47-year-old female who presents to the hospital yesterd ay after being seen by Dr. Lowe in his office. She came to his clinic with complaints of dyspnea, e jan, and fatigue. She has a history of end-stage renal disease, maintained on peritoneal dialysis, recently moved from [place]. She was worked up and had a high D-dimer by Dr. Lowe up at 1400. He r potassium was high 5.7, and she was sent to the ER by Dr. Lowe. She is admitted for further sid p. She states that, she has had midfoot amputation of her left foot before in the past and now prese nts with a right second toe infection. She states that, she got her nails painted last week and got a small injury to the second toe at that time and noted that it got significantly worse and became in fected. She states that, it began to give off an odor and some drainage occurred from this area. Past Medical History: Significant for diabetes, hypertension, hyperlipidemia, end-stage renal diseas e, and congestive heart failure. She has had a stroke. Past Surgical History: Includes C-sections in 1997 and 2003, liposuction. She has had a buttock aug mentation lift, breast reduction, 3 stents inserted from her stroke, a and left foot partial amputati on. Family History: Her mother had heart disease and hypertension. Father had a stroke and her sister h as hypertension. Social History: She is a former smoker. She drinks socially and denies recreational drug use. Home Medications: Include Norvasc, aspirin, ProRenal multivitamin, Rocaltrol, Keflex, vitamin D3, Pl avix, Neurontin, apresoline, NovoLog, Levemir, lisinopril, KCl, pravastatin, and Renvela. Allergies: TO PENICILLIN. Review of Systems: A 10-point review of systems other than HPI, she denies. Physical Examination: Vital Signs: At the time of my examination, her BMI is in the 40 range. She is approximately 5 foot 8, 277 pounds. Her blood pressure was 138/84, pulse is 101, respiratory rate 18, and temperature 97 .4. General: She is awake, alert, and oriented. Psychiatric: She is appropriate, conversive. HEENT: She is normocephalic. Her sclerae are anicteric. Her mucous membranes are moist. Oropharyn x is clear. Neck: Supple without JVD. CHEST: Normal expansion and excursion. Abdomen: Soft, nontender, nondistended. Extremities: Focused examination of the foot shows a left midfoot amputation. Focused examination o f the right foot shows a right second toe distal infection with clear drainage from this. There is a n erosion ulceration to the tip of the toe extending to the plantar aspect. Laboratory Data: She had a laboratory exam, which reveals a white blood count of 11.1, hemoglobin 9. 0 and hematocrit of 27.8. Her platelet count is 296. Her PT 13.0, INR 1.11. Chemistry shows a sodi um of 140, potassium 5.4, chloride 99, carbon dioxide 24, BUN 90, and creatinine is 11.09. Her gluco se is 230, calcium 9.1. She had imaging performed as well, which included a chest x-ray, which was o fficially read as irregular linear stranding, anterior right lung base present, more typical for scar ring than infiltrate. No comparison available. No mass, consolidation, or failure finding. She had a foot x-ray performed of the right foot with 3 views, which showed early bone destructive osteomyel itis change in the distal phalanx of the second toe. Proximal middle phalanges of the second toe are intact, although osteomyelitis can be present prior to bony destruction. Degenerative changes at th e dorsum of the midfoot, navicular cuneiform articulation. She had an extremity venous study of the bilateral lower extremities, which was negative for DVT. There is non-compressibility of several camille ous structures, likely related to soft tissue edema. She had a Doppler study as well, which official ly read as mild peripheral vascular disease suspected in the infrapopliteal vasculature. No occlusio n is seen. She had a lung V/Q scan, which was officially read as very low probability of pulmonary t hromboembolism. Assessment And Plan: This is a 47-year-old female, who presents with signs and symptoms of a second toe infection of the left foot, consistent with osteomyelitic infection. 1.Judicious use of IV fluid hydration. 2.Antibiotic coverage. 3.I have recommended surgical debridement and amputation of the second toe, however, the patient sta lex, she does not want any surgical intervention for any reason at this time because she has had a mi dfoot amputation of the contralateral foot and difficulty with this. She does not wish for any surgi jef intervention at this time. I have explained the risks, benefits, alternatives to the above state d plan. The patient agrees to proceed with non-operative management only at this time. I will be av ailable for the patient should she reconsider; however, continue to recommend wound care with Santyl and packing changes daily to twice daily with elevation of the foot as well as antibiotic coverage. Thank you for this interesting consult. TAY/JENNIFER Voice ID: [id number] Report ID: [id number]
[2017-07-04 20:23] VITALS: BP 144/67; TEMP 98.7
[2017-07-04 20:28] VITALS: O2SAT 95
--- NOTE | 2017-07-05 01:43 | PN ---
Date of Progress Note: 07/04/2017 Subjective: The patient doing better. The patient ultrafiltrated of 2.5 L yesterday and today chest CTA Heart S-2 RRR Abd soft dry exit site Ex +2 edema , Gangreen in the R- mid toe lab reviewed Medications: Current medications the patient on include; Levaquin, aspirin, atorvastatin, calcitriol, Bumex, insulin, metolazone, and Renvela. Assessment And Plan: 1. End-stage renal disease, still on the wet side. We will continue current ultrafiltration. 2. Hypertension, controlled, optimal. Continue current medication. 3. Anasarca secondary to renal failure. Continue ultrafiltration. 4. Osteomyelitis. We will follow up with ID and Surgery. 5. Diabetes as by primary. 6. Secondary hyperparathyroidism, continue binder. Continue calcitriol. JAYNE Voice ID: [id number] Report ID: [id number] [email or web address]
--- NOTE | 2017-07-05 01:53 | PN ---
Date of Progress Note: 07/04/2017 Subjective: This patient doing better. The patient being ultrafiltrating very well. Over the night, she ultrafiltrate 2.5 L and yesterday 2.5 L. Physical Examination: Vital Signs: Blood pressure 144/67, pulse of 99. Chest: Clear to auscultation. Heart: S1, S2. Regular. Abdomen: Soft, nontender. Extremities: Gangrene of mid right toe. +1 edema. Laboratory Data: Sodium 140, potassium 5.4, bicarb 24. BUN 90, creatinine 11.09. Calcium 9.1. H and H 9/27.8. WBC 11.1. Medications: Current medications the patient on include; Levaquin, aspirin, atorvastatin, calcitriol, Bumex, insulin, metolazone, and Renvela. Assessment And Plan: 1. End-stage renal disease, still on the wet side. We will continue current ultrafiltration. 2. Hypertension, controlled, optimal. Continue current medication. 3. Anasarca secondary to renal failure. Continue ultrafiltration. 4. Osteomyelitis. We will follow up with ID and Surgery. 5. Diabetes as by primary. 6. Secondary hyperparathyroidism, continue binder. Continue calcitriol. JAYNE Voice ID: [id number] Report ID: [id number] DANI
[2017-07-05 21:59] LABS: Albumin, (SPE) 3.1 g/dL (3.8-4.8); Alpha-1-Globulins 0.5 g/dL (0.2-0.3); Alpha-2-Globulins 0.8 g/dL (0.5-0.9); Gamma Globulins 1.7 g/dL (0.8-1.7); INTERPRETATION REPORT
== END 2017-07-04 20:10 | disposition home or self-care (01) ==
LOC: ER 15:06 → ERHOLD 18:06 → 2ND 20:17 → OBSVTOIN 07-03 16:26 → INTOOBSV 07-03 16:26
PROVIDERS: ADMIT Internal Medicine; ATTEND Internal Medicine
DX: E87.70 Fluid overload, unspecified; E11.22 Type 2 diabetes mellitus with diabetic chronic kidney disease; E11.51 Type 2 diabetes mellitus with diabetic peripheral angiopathy without gangrene; I12.0 Hypertensive chronic kidney disease with stage 5 chronic kidney disease or end stage renal disease; N25.81 Secondary hyperparathyroidism of renal origin; E87.5 Hyperkalemia; M86.9 Osteomyelitis, unspecified; L97.512 Non-pressure chronic ulcer of other part of right foot with fat layer exposed; Z88.0 Allergy status to penicillin; N18.5 Chronic kidney disease, stage 5; D63.1 Anemia in chronic kidney disease; E78.5 Hyperlipidemia, unspecified; E11.621 Type 2 diabetes mellitus with foot ulcer; R79.1 Abnormal coagulation profile; E11.69 Type 2 diabetes mellitus with other specified complication
CPT/HCPCS: 36415 ×4; 36430; 71046; 72100; 73630; 78582; 80048 ×3; 80053; 80069; 82274; 82607 ×2; 82728 ×4; 82746 ×2; 82747; 82962 ×9; 83010; 83036; 83540 ×2; 83615; 83880; 83970; 84165; 84443 ×2; 84466 ×2; 84484 ×2; 85014; 85018; 85025 ×4; 85044 ×2; 85379; 85610; 86850; 86900; 86901; 87040 ×2; 87070; 87077 ×2; 87086; 87088; 87186 ×2; 87205; 93005; 93925; 93970; 94640; 96372; 96374; 99285; A9540; A9558; J1650; J2270 ×2; J2916; J3370; P9016; Q4081; 81003; 81015; 82533; 82553; J3590